=== PATIENT | female | born 1955 | race Caucasian/White ===

== ENCOUNTER 2022-12-27 19:02 | Inpatient (IN) | payer MEDICARE, MEDICAID ==
[~2022-12-27] VITALS: Ht 152.4 cm; Wt 45.4 kg
[~2022-12-27 19:02] MED LIST: AMAN100C18 PO; albuterol
[2022-12-27] MEDS ORDERED: METHYLPREDNISOLONE SOD SUCC 125 MG/2 ML VIAL IV STA (20:33)
[2022-12-27] MEDS ORDERED: IPRATROPIUM BROMIDE (0.02%) 0.5MG/2.5ML NEB HHN STA (20:33)
[2022-12-27] MEDS: ALBUTEROL (0.083%) 2.5MG/3ML NEB HHN SCH ×3 (21:00→22:00)
[2022-12-27] MEDS: DEXT 5%/0.45% NACL 1000ML 1,000 ML IV SCH (21:05)
[2022-12-27] MEDS ORDERED: ONDANSETRON HCL 4MG/2ML INJ IV PRN (21:30)
[2022-12-27] MEDS ORDERED: GUAIFENESIN 200MG/10ML SUGAR FREE UDC PO PRN (21:30)
[2022-12-27] MEDS ORDERED: NA PHOS,M-B/NA PHOS,DI-BA ENEMA 118ML PR PRN (21:30)
[2022-12-27] MEDS ORDERED: CLONIDINE 0.1MG TABLET PO PRN (21:30)
[2022-12-27] MEDS ORDERED: ACETAMINOPHEN 325MG TABLET PO PRN (21:30)
[2022-12-27] MEDS ORDERED: HALOPERIDOL LACTATE 5MG/ML VIAL IM ONE (23:30)
[2022-12-27] MEDS ORDERED: DIPHENHYDRAMINE 50MG/ML VIAL IM ONE (23:30)
[2022-12-27 23:45] LABS: CHLORIDE 107 mEq/L (98-107)
[2022-12-27 23:47] LABS: PROTHROMBIN TIME 10.4 sec (9.6-11.0)
[2022-12-27 23:51] LABS: EOSINOPHILS % 8.2 % (0.0-5.0); HEMATOCRIT. 46.2 % (36.0-48.0); HEMOGLOBIN. 15.2 g/dL (12.0-16.0); LYMPHOCYTES % 22.8 % (20.0-50.0); MEAN CORPUSCULAR HEMOGLOBIN 30.2 pg (28.0-32.0); MEAN CORPUSCULAR VOLUME 91.8 fL (81.0-99.0); MEAN PLATELET VOLUME 7.9 fl (7.4-10.4); PLATELET 290 x1000/uL (130-400); RED BLOOD CELL COUNT 5.03 mill/uL (4.2-5.4); RED CELL DISTRIBUTION WIDTH 14.5 % (11.6-14.6)
[2022-12-28 00:01] LABS: ETHANOL BLOOD < 10 mg/dL
[2022-12-28 03:18] LABS: CLARITY URINE CLOUDY (CLEAR); COLOR URINE YELLOW (YELLOW); KETONES URINE NEGATIVE (NEGATIVE); LEUKOCYTE ESTERASE URINE 3+ (NEGATIVE); NITRITE URINE NEGATIVE (NEGATIVE); OCCULT BLOOD URINE NEGATIVE (NEGATIVE); PH URINE 6.5 (4.5-8.0); PROTEIN URINE NEGATIVE (NEGATIVE); SPECIFIC GRAVITY URINE 1.019 (1.005-1.030); UROBILINOGEN URINE 0.2 E.U./dL (0.2-1.0)
[2022-12-28 03:58] LABS: *AMPHETAMINES SCREEN URINE NEGATIVE (NEGATIVE); *BARBITURATES SCREEN URINE NEGATIVE (NEGATIVE); *BENZODIAZEPINES SCREEN URINE NEGATIVE (NEGATIVE); *COCAINE SCREEN URINE NEGATIVE (NEGATIVE); CANNABINOID URINE SCREEN NEGATIVE (NEGATIVE); METHADONE URINE SCREEN NEGATIVE (NEGATIVE); OPIATES URINE SCREEN NEGATIVE (NEGATIVE); PHENCYCLIDINE URINE SCREEN NEGATIVE (NEGATIVE)
[2022-12-28] MEDS: ALBUTEROL (0.083%) 2.5MG/3ML NEB HHN PRN ×3 (05:10→20:07)
[2022-12-28] MEDS: PANTOPRAZOLE 40MG DR TABLET PO SCH (07:20)
[2022-12-28] MEDS ORDERED: LEVOFLOXACIN 500MG PREMIX 100 ML IV NR (08:00)
[2022-12-28] MEDS ORDERED: OLANZAPINE 10 MG/VIAL IM ONE (08:15)
[2022-12-28] MEDS: ENOXAPARIN 30MG/0.3ML SYR SUBCUT SCH (09:00)
[2022-12-28 09:18] VITALS: BP 121/78
[2022-12-28] MEDS: DEXT 5%/0.45% NACL 1000ML 1,000 ML IV SCH (14:29)
[2022-12-28 16:00] VITALS: BP 117/79
[2022-12-28 16:16] LABS: BASOPHILS % 1.2 % (0.0-2.0); EOSINOPHILS % 8.8 % (0.0-5.0); HEMATOCRIT. 45.1 % (36.0-48.0); LYMPHOCYTES % 15.7 % (20.0-50.0); MEAN CORPUSCULAR HEMOGLOBIN 30.5 pg (28.0-32.0); MEAN CORPUSCULAR VOLUME 91.7 fL (81.0-99.0); MEAN PLATELET VOLUME 7.8 fl (7.4-10.4); MONOCYTES % 10.9 % (2.0-8.0); NEUTROPHILS % 63.4 % (40.0-76.0); PLATELET 295 x1000/uL (130-400); RED BLOOD CELL COUNT 4.92 mill/uL (4.2-5.4); RED CELL DISTRIBUTION WIDTH 14.1 % (11.6-14.6)
[2022-12-28 16:22] LABS: CHLORIDE 110 mEq/L (98-107)
[2022-12-28 16:27] LABS: PHOSPHORUS 4.3 mg/dL (2.5-4.9)
[2022-12-28 19:27] LABS: T4 FREE 0.95 ng/dL (0.76-1.46)
[2022-12-28 19:44] LABS: VITAMIN B12 SERUM 474 pg/mL (211-911)
[2022-12-28 20:00] VITALS: BP 142/82
[2022-12-28 20:03] LABS: FOLIC ACID (FOLATE) SERUM > 20.00 ng/mL (>5.38)
[2022-12-28 22:00] VITALS: BP 142/82
[2022-12-29] VITALS: BP 128/78
[2022-12-29] MEDS: ALBUTEROL (0.083%) 2.5MG/3ML NEB HHN PRN ×2 (03:44→11:42)
[2022-12-29 04:00] VITALS: BP 140/73
[2022-12-29] MEDS: DEXT 5%/0.45% NACL 1000ML 1,000 ML IV SCH ×2 (04:18→18:52)
[2022-12-29] MEDS: PANTOPRAZOLE 40MG DR TABLET PO SCH (06:18)
[2022-12-29 08:00] VITALS: BP 132/77
[2022-12-29] MEDS: ENOXAPARIN 30MG/0.3ML SYR SUBCUT SCH (08:20)
[2022-12-29] MEDS: LEVOFLOXACIN 250MG PREMIX 50 ML IV SCH (08:20)
[2022-12-29 12:00] VITALS: BP 105/70
[2022-12-29] MEDS: ALBUTEROL (0.083%) 2.5MG/3ML NEB HHN SCH ×2 (15:38→20:59)
[2022-12-29 16:00] VITALS: BP 118/72
[2022-12-29 20:00] VITALS: BP 131/76
[2022-12-30] VITALS: BP 112/67
[2022-12-30] MEDS: ALBUTEROL (0.083%) 2.5MG/3ML NEB HHN SCH ×4 (02:45→20:03)
[2022-12-30 04:00] VITALS: BP 113/69
[2022-12-30] MEDS: PANTOPRAZOLE 40MG DR TABLET PO SCH (07:16)
[2022-12-30 08:00] VITALS: BP 127/71
[2022-12-30 08:48] LABS: BASOPHILS % 0.9 % (0.0-2.0); EOSINOPHILS % 9.6 % (0.0-5.0); HEMATOCRIT. 46.6 % (36.0-48.0); HEMOGLOBIN. 15.6 g/dL (12.0-16.0); LYMPHOCYTES % 18.1 % (20.0-50.0); MEAN CORPUSCULAR VOLUME 92.4 fL (81.0-99.0); MEAN PLATELET VOLUME 7.6 fl (7.4-10.4); MONOCYTES % 8.4 % (2.0-8.0); PLATELET 277 x1000/uL (130-400); RED BLOOD CELL COUNT 5.05 mill/uL (4.2-5.4); RED CELL DISTRIBUTION WIDTH 14.2 % (11.6-14.6)
[2022-12-30 09:11] LABS: CHLORIDE 108 mEq/L (98-107)
[2022-12-30] MEDS: ENOXAPARIN 30MG/0.3ML SYR SUBCUT SCH (09:24)
[2022-12-30] MEDS: LEVOFLOXACIN 250MG PREMIX 50 ML IV SCH (09:24)
[2022-12-30 12:00] VITALS: BP 110/51
[2022-12-30] MEDS: DEXT 5%/0.45% NACL 1000ML 1,000 ML IV SCH (15:48)
[2022-12-30 16:00] VITALS: BP 104/68
[2022-12-30 20:00] VITALS: BP 128/72
[2022-12-30] MEDS: DOCUSATE SODIUM 100MG CAPSULE PO SCH (21:00)
[2022-12-31] VITALS: BP 131/84
[2022-12-31] MEDS: ALBUTEROL (0.083%) 2.5MG/3ML NEB HHN SCH ×4 (01:25→19:40)
[2022-12-31] MEDS: DEXT 5%/0.45% NACL 1000ML 1,000 ML IV SCH (02:33)
[2022-12-31 04:00] VITALS: BP 115/72
[2022-12-31 06:14] LABS: BASOPHILS % 1.5 % (0.0-2.0); EOSINOPHILS % 11.5 % (0.0-5.0); HEMATOCRIT. 44.5 % (36.0-48.0); MEAN CORPUSCULAR HEMOGLOBIN 30.8 pg (28.0-32.0); MEAN CORPUSCULAR VOLUME 91.2 fL (81.0-99.0); MEAN PLATELET VOLUME 7.7 fl (7.4-10.4); MONOCYTES % 10.1 % (2.0-8.0); NEUTROPHILS % 51.9 % (40.0-76.0); PLATELET 255 x1000/uL (130-400); RED BLOOD CELL COUNT 4.88 mill/uL (4.2-5.4); RED CELL DISTRIBUTION WIDTH 13.9 % (11.6-14.6)
[2022-12-31] MEDS: PANTOPRAZOLE 40MG DR TABLET PO SCH (06:28)
[2022-12-31 06:52] LABS: CHLORIDE 108 mEq/L (98-107)
[2022-12-31 08:00] VITALS: BP 136/80
[2022-12-31] MEDS: DOCUSATE SODIUM 100MG CAPSULE PO SCH (10:33)
[2022-12-31] MEDS: ENOXAPARIN 30MG/0.3ML SYR SUBCUT SCH (10:33)
[2022-12-31] MEDS ORDERED: LEVOFLOXACIN 250MG TABLET PO SCH (11:00)
[2022-12-31 12:00] VITALS: BP 107/69
[2022-12-31 17:25] VITALS: BP 107/69
[2022-12-31 20:00] VITALS: BP 141/79
[2023-01-01] VITALS: BP 132/72
[2023-01-01] MEDS ORDERED: FAMOTIDINE 20MG TABLET PO SCH (07:10)
== END 2023-01-01 00:36 | DRG 689 ==
LOC: ER 19:02 → SUPCPDRO 20:52 → EDBEDREQ 23:03 → MICUSO 23:45 → 8WST 12-28 09:55
PROVIDERS: ADMIT Internal Medicine Nephrology; ATTEND Internal Medicine Nephrology
PROC: 4A00X4Z Measurement of Central Nervous Electrical Activity, External Approach (ICD-10-PCS; principal; 2022-12-31)
DX: N39.0 Urinary tract infection, site not specified (principal); G92.8 Other toxic encephalopathy; F20.9 Schizophrenia, unspecified; I10 Essential (primary) hypertension; J44.9 Chronic obstructive pulmonary disease, unspecified; Z20.822 Contact with and (suspected) exposure to COVID-19; Z88.0 Allergy status to penicillin; Z88.1 Allergy status to other antibiotic agents; Z91.010 Allergy to peanuts
CPT/HCPCS: 36415; 71045; 72170; 74018; 80048; 80053; 80305; 80307; 80320; 80329; 81003; 82140; 82607; 82746; 83036; 83735; 84100; 84439; 84443; 84481; 84484; 85025; 87426; 93306; 93970; 94640; 94644; 97162; 99285; C1893; J1200; J1630; J1650; J1956; J2930; J3490; G0480

== ENCOUNTER 2023-02-14 14:49 | Emergency (ER) | payer MEDICARE, MEDICAID ==
[~2023-02-14] VITALS: Ht 137.2 cm; Wt 50.0 kg
[2023-02-14 16:19] LABS: BASOPHILS % 0.6 % (0.0-2.0); EOSINOPHILS % 5.7 % (0.0-5.0); HEMATOCRIT. 45.9 % (36.0-48.0); LYMPHOCYTES % 11.5 % (20.0-50.0); MEAN CORPUSCULAR HEMOGLOBIN 30.2 pg (28.0-32.0); MEAN CORPUSCULAR VOLUME 92.2 fL (81.0-99.0); MEAN PLATELET VOLUME 7.5 fl (7.4-10.4); MONOCYTES % 7.2 % (2.0-8.0); PLATELET 294 x1000/uL (130-400); RED BLOOD CELL COUNT 4.98 mill/uL (4.2-5.4); RED CELL DISTRIBUTION WIDTH 14.6 % (11.6-14.6)
[2023-02-14 16:26] LABS: CHLORIDE 111 mEq/L (98-107)
[2023-02-14 19:50] VITALS: BP 114/80
== END 2023-02-15 10:10 | disposition home or self-care (01) ==
LOC: ER 14:49
DX: J45.909 Unspecified asthma, uncomplicated (principal); J44.9 Chronic obstructive pulmonary disease, unspecified; F03.90 Unspecified dementia, unspecified severity, without behavioral disturbance, psychotic disturbance, mood disturbance, and anxiety; F20.9 Schizophrenia, unspecified; Z88.0 Allergy status to penicillin
CPT/HCPCS: 36415; 71045; 80053; 83605; 83880; 85025; 93005; 99285

== ENCOUNTER 2025-10-24 22:57 | Inpatient (IN) | payer MEDICARE, MEDICAID ==
[~2025-10-24] VITALS: Ht 167.6 cm; Wt 50.2 kg
[~2025-10-24 22:57] MED LIST changes: +AMAN-17 PO; -AMAN100C18 PO; +ATOR10TA PO; +DOCU-422 PO; +IBUP-1455 PO; +MELA3TAB40 MT; +PROT40 PO; +RISP-28 PO; +TOPUD PO
[2025-10-24 23:04] VITALS: O2SAT 98
[2025-10-24] MEDS ORDERED: ACETAMINOPHEN 325MG TABLET PO PRN ×2 (23:30→23:45)
[2025-10-24] MEDS ORDERED: ONDANSETRON HCL 4MG/2ML INJ IV PRN (23:30)
[2025-10-25] MEDS: SODIUM CHLORIDE 0.9% 1,000 ML IV ONE (00:11)
[2025-10-25 00:50] LABS: BASOPHILS % 1.0 % (0.0-2.0); EOSINOPHILS % 2.2 % (0.0-5.0); HEMATOCRIT. 54.0 % (36.0-48.0); HEMOGLOBIN. 16.0 g/dL (12.0-16.0); LYMPHOCYTES % 14.5 % (20.0-50.0); MEAN PLATELET VOLUME 10.7 fl (7.4-10.4); MONOCYTES % 5.9 % (2.0-8.0); NEUTROPHILS % 76.4 % (40.0-76.0); PLATELET 360 x1000/uL (130-400); RED BLOOD CELL COUNT 5.16 mill/uL (4.2-5.4); RED CELL DISTRIBUTION WIDTH 18.0 % (11.6-14.6)
[2025-10-25 00:57] LABS: UREA NITROGEN BLOOD 67 mg/dL (9-23)
[2025-10-25 00:58] LABS: TROPONIN I HIGH SENSITIVITY 9 ng/L (3.0-34)
[2025-10-25 00:59] LABS: ASPARTATE AMINOTRANSFERASE 38 IU/L (<34); BILIRUBIN DIRECT 0.1 mg/dL (<=3.0); BILIRUBIN TOTAL 0.3 mg/dL (0.1-1.0); PROTEIN TOTAL 7.7 g/dL (6.0-8.3)
[2025-10-25 01:26] LABS: CREATININE 1.4 mg/dL (0.6-1.0)
[2025-10-25] MEDS: DEXT 5%/0.45% NACL 1000ML 1,000 ML IV SCH (04:29)
[2025-10-25] MEDS ORDERED: LEVOFLOXACIN 500MG PREMIX 100 ML IV SCH (07:30)
[2025-10-25] MEDS ORDERED: LEVOFLOXACIN 750MG PREMIX 150ML IV SCH (08:00)
[2025-10-25] MEDS: VANCOMYCIN 1G PREMIX 200 ML IV SCH (09:19)
[2025-10-25] MEDS: HEPARIN 5000 UNITS/ML VIAL SUBCUT SCH (10:14)
[2025-10-25] MEDS: LEVOFLOXACIN 750MG PREMIX 150ML IV SCH (12:13)
[2025-10-25] MEDS: PANTOPRAZOLE 40MG DR TABLET PO SCH (12:37)
[2025-10-25] MEDS: RISPERIDONE 1MG TABLET PO SCH (12:37)
[2025-10-25 14:52] LABS: CLARITY URINE TURBID (CLEAR); COLOR URINE DARK YELLOW (YELLOW); GLUCOSE URINE NEGATIVE (NEGATIVE); KETONES URINE NEGATIVE (NEGATIVE); LEUKOCYTE ESTERASE URINE 2+ (NEGATIVE); NITRITE URINE POSITIVE (NEGATIVE); OCCULT BLOOD URINE 1+ (NEGATIVE); PH URINE 8.0 (4.5-8.0); PROTEIN URINE 3+ (NEGATIVE); SPECIFIC GRAVITY URINE 1.017 (1.005-1.030); UROBILINOGEN URINE 0.2 E.U./dL (0.2-1.0)
[2025-10-25 15:15] LABS: SQUAMOUS EPITHELIAL CELL URINE 3+ /lpf (RARE/1+); WBC URINE TNTC /hpf (0-2)
[2025-10-25 15:18] LABS: YEAST URINE NONE SEEN
[2025-10-25 15:19] LABS: BACTERIA URINE 4+
[2025-10-25 15:46] LABS: *AMPHETAMINES SCREEN URINE NEGATIVE (NEGATIVE); *BARBITURATES SCREEN URINE NEGATIVE (NEGATIVE); *BENZODIAZEPINES SCREEN URINE NEGATIVE (NEGATIVE); *COCAINE SCREEN URINE NEGATIVE (NEGATIVE)
[2025-10-25 15:47] LABS: CANNABINOID URINE SCREEN NEGATIVE (NEGATIVE); ECSTASY MDMA SCREEN URINE NEGATIVE (NEGATIVE); METHADONE URINE SCREEN NEGATIVE (NEGATIVE); OPIATES URINE SCREEN NEGATIVE (NEGATIVE); PHENCYCLIDINE URINE SCREEN NEGATIVE (NEGATIVE)
[2025-10-25 18:00] VITALS: BP 115/82; PULSE 88; RESP 25; TEMP 36.2; O2SAT 91
[2025-10-25 19:47] VITALS: BP 115/82; PULSE 88; RESP 25; TEMP 36.1956
[2025-10-25 20:00] VITALS: BP 121/111; PULSE 87; RESP 21; TEMP 36.2; O2SAT 92
[2025-10-25 22:00] VITALS: BP 120/81; PULSE 86; RESP 21; O2SAT 96
[2025-10-25] MEDS: ATORVASTATIN CALCIUM 10MG TABLET PO SCH (22:37)
[2025-10-26] VITALS (10 sets, daily range): BP systolic 97–133; BP diastolic 66–94; PULSE 73–97; RESP 17–24; TEMP 36.2–36.9; O2SAT 95–100
[2025-10-26] MEDS: VANCOMYCIN 750MG/150ML (BAXTER) IV SCH (10:11)
[2025-10-26] MEDS: DIPHENHYDRAMINE 50MG/ML VIAL IV PRN (14:06)
[2025-10-26] MEDS: FAMOTIDINE 20MG TABLET PO SCH (15:04)
[2025-10-26] MEDS: HALOPERIDOL LACTATE 5MG/ML VIAL IM PRN (16:58)
[2025-10-26] MEDS: MELATONIN 3MG TABLET PO SCH (20:04)
[2025-10-27] VITALS (14 sets, daily range): BP systolic 94–137; BP diastolic 60–108; PULSE 78–94; RESP 17–24; TEMP 36.2–37.4; O2SAT 96–99
[2025-10-27 06:13] LABS: BASOPHILS % 0.5 % (0.0-2.0); EOSINOPHILS % 3.9 % (0.0-5.0); HEMATOCRIT. 42.4 % (36.0-48.0); HEMOGLOBIN. 12.9 g/dL (12.0-16.0); LYMPHOCYTES % 16.3 % (20.0-50.0); MEAN PLATELET VOLUME 10.9 fl (7.4-10.4); MONOCYTES % 4.7 % (2.0-8.0); NEUTROPHILS % 74.6 % (40.0-76.0); PLATELET 225 x1000/uL (130-400); RED BLOOD CELL COUNT 4.08 mill/uL (4.2-5.4); RED CELL DISTRIBUTION WIDTH 17.3 % (11.6-14.6)
[2025-10-27 08:24] LABS: CREATININE 0.9 mg/dL (0.6-1.0); UREA NITROGEN BLOOD 27 mg/dL (9-23)
[2025-10-27] MEDS ORDERED: FAMOTIDINE 20MG TABLET PO SCH (09:00)
[2025-10-27] MEDS: DEXTROSE 5% WATER 1,000 ML IV SCH (09:12)
[2025-10-28] VITALS (12 sets, daily range): BP systolic 109–131; BP diastolic 62–110; PULSE 75–97; RESP 20–27; TEMP 36.5–37.3; O2SAT 96–99
[2025-10-28 07:32] LABS: CREATININE 0.8 mg/dL (0.6-1.0)
[2025-10-28 07:33] LABS: UREA NITROGEN BLOOD 20 mg/dL (9-23)
[2025-10-28 07:35] LABS: PHOSPHORUS 3.0 mg/dL (2.5-4.9)
[2025-10-29] VITALS (12 sets, daily range): BP systolic 116–137; BP diastolic 65–97; PULSE 73–103; RESP 18–26; TEMP 36.6–37.3; O2SAT 94–98
[2025-10-29] MEDS ORDERED: VANCOMYCIN 1GM PMX (XELLIA) 200 ML IV SCH
[2025-10-29] MEDS: SODIUM CHLORIDE 0.45% 1,000 ML IV SCH (05:45)
[2025-10-30] VITALS (12 sets, daily range): BP systolic 102–118; BP diastolic 50–76; PULSE 79–99; RESP 15–23; TEMP 36.3–37.1; O2SAT 94–99
[2025-10-31] VITALS (12 sets, daily range): BP systolic 89–116; BP diastolic 54–78; PULSE 71–92; RESP 16–21; TEMP 36.1–37.1; O2SAT 97–100
[2025-10-31 11:31] LABS: UREA NITROGEN BLOOD 9 mg/dL (9-23)
[2025-10-31 12:43] LABS: CREATININE 0.5 mg/dL (0.6-1.0)
[2025-10-31 12:55] LABS: BASOPHILS % 0.3 % (0.0-2.0); EOSINOPHILS % 7.9 % (0.0-5.0); HEMATOCRIT. 36.4 % (36.0-48.0); HEMOGLOBIN. 11.7 g/dL (12.0-16.0); LYMPHOCYTES % 14.1 % (20.0-50.0); MEAN PLATELET VOLUME 10.7 fl (7.4-10.4); MONOCYTES % 7.9 % (2.0-8.0); NEUTROPHILS % 69.8 % (40.0-76.0); PLATELET 180 x1000/uL (130-400); RED BLOOD CELL COUNT 3.74 mill/uL (4.2-5.4); RED CELL DISTRIBUTION WIDTH 15.0 % (11.6-14.6)
[2025-11-01] VITALS (11 sets, daily range): BP systolic 86–129; BP diastolic 58–93; PULSE 72–99; RESP 17–29; TEMP 36.2–36.6; O2SAT 95–100
== END 2025-11-01 20:00 | DRG 871 ==
LOC: ER 10-25 00:07 → 5EST 10-25 02:16 → EDBEDREQ 10-25 02:22 → EDBEDREQTM 10-25 02:22 → EDBEDREQDT 10-25 02:22 → ENRESERV 10-25 12:20 → CANRESERV 10-25 12:20 → EDBEDREQSVC 10-25 13:26 → 5EST 10-27 16:28
PROVIDERS: ADMIT Internal Medicine Nephrology; ATTEND Internal Medicine Nephrology
PROC: GZ56ZZZ Individual Psychotherapy, Supportive (ICD-10-PCS; principal; 2025-10-27)
DX: A41.59 Other Gram-negative sepsis (principal); G93.41 Metabolic encephalopathy; N17.0 Acute kidney failure with tubular necrosis; N39.0 Urinary tract infection, site not specified; B96.4 Proteus (mirabilis) (morganii) as the cause of diseases classified elsewhere; J44.1 Chronic obstructive pulmonary disease with (acute) exacerbation; F20.9 Schizophrenia, unspecified; I11.0 Hypertensive heart disease with heart failure; E87.0 Hyperosmolality and hypernatremia; E87.3 Alkalosis; Z66 Do not resuscitate; E86.9 Volume depletion, unspecified; L65.9 Nonscarring hair loss, unspecified; E78.5 Hyperlipidemia, unspecified; Z91.199 Patient's noncompliance with other medical treatment and regimen due to unspecified reason; Z22.322 Carrier or suspected carrier of Methicillin resistant Staphylococcus aureus; Z88.0 Allergy status to penicillin; Z88.1 Allergy status to other antibiotic agents; Z88.6 Allergy status to analgesic agent; Z91.010 Allergy to peanuts; Z79.899 Other long term (current) drug therapy
CPT/HCPCS: 36415; 71045; 80048; 80076; 80202; 80305; 80320; 81003; 82140; 82435; 82550; 82962; 83605; 83735; 83880; 84100; 84145; 84295; 84484; 85025; 85379; 87077; 87186; 93005; 96360; 99285; A4606; A4615; J1200; J1630; J1644; J1956; J3373; J7030; J7070; G0480